=== PATIENT | female | born 1955 | race Caucasian/White ===

== ENCOUNTER → 2024-04-02 08:12 | Outpatient (REF) | payer MEDICARE, SELFPAY | LOC: RAD 08:12 | PROVIDERS: ATTENDING PHYSICIAN Nurse Practitioner Family; FAMILY PHYSICIAN Family Medicine | DX: R07.81 Pleurodynia (principal) | CPT/HCPCS: 71101 ==

== ENCOUNTER → 2024-11-16 13:37 | Outpatient (REF) | payer MEDICARE, SELFPAY | LOC: WDC 13:37 | PROVIDERS: ATTENDING PHYSICIAN Family Medicine | DX: Z13.820 Encounter for screening for osteoporosis (principal); Z12.31 Encounter for screening mammogram for malignant neoplasm of breast; Z87.891 Personal history of nicotine dependence; M81.0 Age-related osteoporosis without current pathological fracture | CPT/HCPCS: 71271; 77063; 77067; 77080 ==